=== PATIENT | male | born 1945 ===

== ENCOUNTER 2019-06-12 10:18 | Day surgery (SDC) | payer MEDICARE, MEDICAID ==
[~2019-06-12 10:18] MED LIST: Acetaminophen TAB* 325 MG PO ONE; Buffered Lidocaine 1% SYRIN* 1 ML/SYRINGE INTRADERM ONE; Lactated Ringers 1000 ML Bag* 1,000 ML IV SCH
[2019-06-12] MEDS ORDERED: fentaNYL* 50 MCG/ML 2 ML VIAL (100 MCG VIAL) ONE (10:24)
[2019-06-12] MEDS ORDERED: Buffered Lidocaine 1% SYRIN* 1 ML/SYRINGE INTRADERM ONE ×2 (11:03→11:10)
[2019-06-12] MEDS ORDERED: ceFAZolin 2 GM PREMIX in ORs 2 GM/50 ML BAG ONE (11:03)
[2019-06-12] MEDS ORDERED: Acetaminophen TAB* 325 MG ONE (11:03)
[2019-06-12] MEDS ORDERED: Lidocaine 2% PF* 10 ML AMP ONE (13:07)
[2019-06-12] MEDS ORDERED: Ondansetron INJ* 2 MG/ML VIAL ONE (13:08)
[2019-06-12] MEDS ORDERED: Propofol* 500 MG/50 ML BTL ONE (13:09)
[2019-06-12] MEDS ORDERED: ROPIVACAINE 5 MG/ML 30 ML BTL (0.5%) ONE (13:09)
[2019-06-12] MEDS ORDERED: Lidocaine 2% PF * 5 ML VIAL ONE (13:09)
[2019-06-12] MEDS ORDERED: HYDROmorphone INJ1* 1 MG/ML SYRINGE IV PRN (13:48)
[2019-06-12] MEDS ORDERED: Naloxone* 0.4 MG/ML 1 ML VIAL IV PRN (13:48)
[2019-06-12] MEDS ORDERED: HYDROmorphone INJ1* 1 MG/ML SYRINGE ONE (13:58)
[2019-06-12 14:30] VITALS: BP 131/86
--- NOTE | 2019-06-12 23:51 | OP ---
DATE OF OPERATION: 06/12/19 - [facility] DATE OF : 45 ATTENDING SURGEON: Pablo Howard MD WOMEN'S STUDIES LECTURER: Hany Saldivar PA-C PRE-OP DIAGNOSIS: Chronic osteomyelitis, left forefoot. POST-OP DIAGNOSIS: Chronic osteomyelitis, left forefoot. OPERATIVE PROCEDURE: Left transmetatarsal amputation. DESCRIPTION OF PROCEDURE: The patient was taken to the operating room where ankle Esmarch was raised along with lidocaine for a block. We made a transverse elliptical incision at the distal portion of his left forefoot just behind the metatarsal heads. The dorsal flap was raised off the metatarsal shafts, which were then transected at about the junction of the mid to proximal third. We then flexed the foot through the osteotomy and divided the plantar flap delivering the foot to Pathology. Local cultures were sent. Tourniquet dropped with local hemostasis obtained. We then irrigated thoroughly, closing dorsal to plantar flap with 2-0 Monocryl and 2-0 Prolene sutures, and a compression dressing, plaster splint applied. [id number]/[facility] #: [id number] WENDY
== END 2019-06-12 15:19 | disposition home or self-care (01) ==
LOC: OR 10:18
PROVIDERS: ATTEND Orthopaedic Surgery
DX: M86.672 Other chronic osteomyelitis, left ankle and foot (principal); M19.90 Unspecified osteoarthritis, unspecified site; K21.9 Gastro-esophageal reflux disease without esophagitis; J44.9 Chronic obstructive pulmonary disease, unspecified; G62.9 Polyneuropathy, unspecified; G89.18 Other acute postprocedural pain; I48.91 Unspecified atrial fibrillation; Z79.01 Long term (current) use of anticoagulants; Z86.711 Personal history of pulmonary embolism; F17.210 Nicotine dependence, cigarettes, uncomplicated; G20 Parkinson's disease
CPT/HCPCS: 87070; 87073; 87205; A9270-GY; J0690; J1170; J2001; J2405; J2704; J2795; J3010

== ENCOUNTER 2019-08-24 07:46 | Day surgery (SDC) | payer MEDICARE, MEDICAID ==
[~2019-08-24 07:46] MED LIST changes: -Acetaminophen TAB* 325 MG PO ONE
[2019-08-24] MEDS ORDERED: ceFAZolin 2 GM PREMIX in ORs 2 GM/50 ML BAG ONE (08:15)
[2019-08-24] MEDS ORDERED: Midazolam* 1 MG/ML 2 ML VIAL (2 MG) ONE (09:15)
[2019-08-24] MEDS ORDERED: EPHEDrine (Pressors)* 50 MG/ML VIAL ONE (09:16)
[2019-08-24] MEDS ORDERED: Propofol* 10 MG/ML 20 ML BTL ONE ×2 (10:17→11:12)
[2019-08-24] MEDS ORDERED: Lidocaine 1% INJ* 10 MG/ML 30 ML SDV ONE (10:58)
[2019-08-24] MEDS ORDERED: Bupivacaine 0.5%* 50 ML MDV VIAL ONE (10:58)
[2019-08-24] MEDS ORDERED: fentaNYL* 50 MCG/ML 2 ML VIAL (100 MCG VIAL) ONE (11:24)
[2019-08-24] MEDS ORDERED: oxyCODONE TAB* 5 MG TAB PO PRN (11:36)
[2019-08-24] MEDS ORDERED: Naloxone* 0.4 MG/ML 1 ML VIAL IV PRN (11:36)
[2019-08-24] MEDS ORDERED: Ondansetron INJ* 2 MG/ML VIAL IV PRN (11:36)
--- NOTE | 2019-08-24 11:55 | OP ---
Operative Report - Blank - Operative Report Date of Operation: 08/24/19 Note: PATIENT: Erasto Patterson DATE OF : 1945 DATE OF SURGERY: 08/24/2019 SURGEON: Paul Wang MD RN DIABETES EDUCATOR: TREASURE Peraza, whos assistance was necessary for positioning, retraction, help with instrumentation, and closure. ANESTHESIOLOGIST: Dr. Zelaya PREOPERATIVE DIAGNOSIS: Right 2nd toe ulcer. Right 2nd 3rd and 4th toe osteomyelitis. POSTOPERATIVE DIAGNOSIS: Right 2nd toe ulcer. Right 2nd 3rd and 4th toe osteomyelitis. OPERATION: Right 2nd, 3rd and 4th toe amputations at the level of the PIP joints ANESTHESIA: MAC IMPLANTS: none TOURNIQUET TIME: Less than 1 hour with an ankle Esmarch tourniquet. SPECIMENS: Toes to pathology. Culture swabs from 4th toe to microbiology. ESTIMATED BLOOD LOSS: minimal COMPLICATIONS: none STATUS: Stable from the operating room to the recovery room. INDICATIONS FOR PROCEDURE: Erasto has had ongoing problems with the toes on his right foot including pain, open wounds and infections. Both operative and non operative treatment alternatives were reviewed. Further, the nature and risks of surgery were reviewed in careful detail. Our discussions regarding the risks of surgery included, but were not limited to, wound infection, wound problems, nerve injury , neuroma, RSD, persistent symptoms, blood clot, persistent or worsening infection, failure of the surgery, need for further amputation, and even the remote chance of catastrophic complication, including loss of limb. DESCRIPTION OF PROCEDURE: The patient was seen in the preoperative holding unit and informed written consent was obtained. The appropriate extremity was marked. The patient was then brought to the operating room and carefully positioned on the operating room table. Anesthesia was induced. All bony prominences were padded with great care. A chlorhexidine based pre-scrub was performed followed by a chloraprep prep and drape in standard sterile fashion. A surgical safety pause was then conducted in which we confirmed the appropriate patient, extremity, planned procedure, availability of equipment, indication and administration of antibiotics, and DVT prophylaxis in the form of a compression boot on the non- surgical extremity. I began with application of an ankle Esmarch tourniquet. Care was taken not to compress the forefoot. I then made an incision to remove the distal aspect of the 4th toe. I maintained as much healthy soft-tissue length as was possible. The phalanges were dissected out and the toe was amputated at the level of the PIP joint. The toe was then sent to pathology. The remaining soft tissues were healthy appearing. There was no purulence expressed from more proximal. Culture swabs were taken. I then made an incision to remove the distal aspect of the 3rd toe. I maintained as much healthy soft-tissue length as was possible. The phalanges were dissected out and the toe was amputated at the level of the PIP joint. The toe was then sent to pathology. The remaining soft tissues were healthy appearing. There was no purulence expressed from more proximal. I then made an incision to remove the distal aspect of the 2nd toe. I maintained as much healthy soft-tissue length as was possible. The phalanges were dissected out and the toe was amputated at the level of the PIP joint. The toe was then sent to pathology. The remaining soft tissues were healthy appearing. There was no purulence expressed from more proximal. The wounds were then copiously irrigated and closed in a layered fashion utilizing 3-0 Monocryl and 3-0 nylon. A sterile dressing was then applied. The patient was then awakened from anesthesia and transferred to the recovery room in stable condition. There were no complications. All needle and sponge counts were correct at the end of the case. ATTESTATION: I attest I was present and scrubbed and performed the critical portions of the procedure myself. POSTOPERATIVE PLAN: The patient may be heel weight-bearing in a post-operative shoe and will follow up will be in two weeks for a wound check.
[2019-08-24] MEDS ORDERED: ROPIVACAINE 5 MG/ML 30 ML BTL (0.5%) ONE (12:05)
[2019-08-24] MEDS ORDERED: Lidocaine 2% PF * 5 ML VIAL ONE (12:05)
[2019-08-24 12:23] VITALS: BP 109/83
== END 2019-08-24 13:11 | disposition home or self-care (01) ==
LOC: OR 07:46
PROVIDERS: ATTEND Orthopaedic Surgery
DX: M86.671 Other chronic osteomyelitis, right ankle and foot (principal); J44.9 Chronic obstructive pulmonary disease, unspecified; G20 Parkinson's disease; F17.210 Nicotine dependence, cigarettes, uncomplicated; I48.91 Unspecified atrial fibrillation; Z86.711 Personal history of pulmonary embolism; Z79.01 Long term (current) use of anticoagulants; K74.60 Unspecified cirrhosis of liver; G62.9 Polyneuropathy, unspecified
CPT/HCPCS: 87070; 87073; 87076; 87205; 88305; 88311; J0690; J2250; J2704; J2795; J3010; J3490